=== PATIENT | male | born 1975 | race Two or more races ===

== ENCOUNTER 2016-07-23 09:03 | Day surgery (SDC) | payer OTHER ==
[2016-07-18 15:21] LABS: Basophils # (auto) 0 uL; Basophils % (auto) 0.2 % (0.0-2.0); Eosinophils # (auto) 0.2 uL; Eosinophils % (auto) 2.6 % (0.0-7.0); Hemoglobin 15.6 g/dL (13.5-17.5); Lymphocytes % (auto) 24.2 % (10.0-50.0); Mean Corpuscular Hemoglobin 28.5 pg (28.0-32.0); Mean Corpuscular Hgb Conc. 33.3 g/dL (32.0-36.0); Mean Corpuscular Volume 85.8 fL (80.0-100.0); Mean Platelet Volume 9.6 fL (7.4-10.4); Monocytes # (auto) 1.3 uL; Monocytes % (auto) 15.6 % (0.0-12.0); Neutrophils # (auto) 4.7 uL; Neutrophils % (auto) 57.4 % (37.0-80.0); Platelet Count (auto) 186 10^3/uL (140-450); Red Cell Distribution Width 14.3 % (11.6-16.0); White Blood Cell 8.1 10^3/uL (4.4-10.8)
[2016-07-18 15:34] LABS: INR 1.11 (0.9-1.15); Partial Thromboplastin Time 27.6 sec (22.64-33.71); Prothrombin Time 11.4 sec (9.37-12.3)
[2016-07-18 15:39] LABS: Calcium 8.5 mg/dL (8.5-10.1); Potassium 3.2 mmol/L (3.5-5.1)
[~2016-07-23] VITALS: Ht 182.9 cm; Wt 111.1 kg
[~2016-07-23 09:03] MED LIST: HYDR25TA4 PO
[2016-07-23] MEDS ORDERED: ceFAZolin 1GM/50ML D5W 50 ML IV ONE (11:52)
[2016-07-23] MEDS ORDERED: BUPIVACAINE 0.75% INJ 10ML MPV SDV IJ ONE (13:13)
[2016-07-23] MEDS ORDERED: PROPOFOL 10 MG/ML 20 ML IV ONE (13:26)
[2016-07-23] MEDS ORDERED: GLYCOPYRROLATE 0.2 MG/ML 1ML VIAL IV ONE (13:28)
[2016-07-23] MEDS ORDERED: ROCURONIUM 10MG/ML 10ML VIAL IV ONE (13:28)
[2016-07-23] MEDS ORDERED: MIDAZOLAM HCL 1MG/1ML-2 ML VIAL ONE (13:28)
[2016-07-23] MEDS ORDERED: fentaNYL CITRATE 100 MCG/2 ML VL ONE (13:28)
[2016-07-23] MEDS ORDERED: NEOSTIGMINE 1 MG/ML INJ (10mg/10ML VIAL) IV ONE (13:28)
[2016-07-23] MEDS ORDERED: SUCCINYLCHOLINE CHLORIDE 20 MG/ML 10ML VIAL IV ONE (13:28)
[2016-07-23] MEDS ORDERED: ONDANSETRON HCL 4 MG/2 ML VIAL IV ONE (14:45)
[2016-07-23] MEDS ORDERED: hydrALAZINE HCL 20 MG/ML VL IV PRN (14:45)
[2016-07-23] MEDS ORDERED: ePHEDrine SULFATE 50 MG/ML AMP IV PRN (14:45)
[2016-07-23] MEDS ORDERED: fentaNYL CITRATE 100 MCG/2 ML VL IV ONE (15:00)
[2016-07-23 15:43] VITALS: BP 137/84
== END 2016-07-23 15:51 | disposition home or self-care (01) ==
LOC: SUR 09:03
PROVIDERS: ATTEND Podiatrist Foot & Ankle Surgery
DX: M76.62 Achilles tendinitis, left leg (principal)
CPT/HCPCS: 27652; 28118; 36415; 80048; 85025; 85610; 85730; C1713; J0330; J0690; J2250; J2704; J3010; J3490; Q4131